=== PATIENT | female | born 1950 ===

== ENCOUNTER 2022-10-01 10:35 | Day surgery (SDC) | payer OTHER ==
[~2022-10-01] VITALS: Ht 162.6 cm; Wt 59.0 kg
[~2022-10-01 10:35] MED LIST: COZAAR25 MG PO
== END 2022-10-01 16:55 | disposition home or self-care (01) ==
LOC: CIR.AMB 10:35 → LAB 13:52 → CIR.AMB 16:55
PROVIDERS: ATTEND Orthopaedic Surgery
DX: S63.272A Dislocation of unspecified interphalangeal joint of right middle finger, initial encounter (principal); X58.XXXA Exposure to other specified factors, initial encounter; Y93.9 Activity, unspecified; Y92.9 Unspecified place or not applicable; Z20.822 Contact with and (suspected) exposure to COVID-19; I10 Essential (primary) hypertension